=== PATIENT | female | born 1965 | race Two or more races ===

== ENCOUNTER 2016-07-05 11:00 | Day surgery (SDC) | payer OTHER ==
[2016-07-04 14:41] VITALS: BMI 45.9
[2016-07-05] VITALS (13 sets, daily range): BP systolic 112–151; BP diastolic 51–63; PULSE 53–79; RESP 11–18; Ht 165.1 cm; Wt 125.0 kg
[~2016-07-05] VITALS: Ht 165.1 cm; Wt 125.0 kg
[~2016-07-05 11:00] MED LIST: CIPROFLOXACIN 400 MG in D5W 200 ML IVPB SCH; PROPOFOL 200 MG INJ ONE
[2016-07-05] MEDS ORDERED: ATEN50TA PO (11:21)
[2016-07-05] MEDS ORDERED: AMLO-147 PO (11:22)
[2016-07-05] MEDS ORDERED: LOSA100T7 PO (11:22)
[2016-07-05] MEDS ORDERED: INSU100C SQ (11:23)
[2016-07-05] MEDS ORDERED: LANT3I SC (11:23)
[2016-07-05] MEDS ORDERED: FENO54TA7 PO (11:26)
[2016-07-05] MEDS ORDERED: FER325 PO (11:26)
[2016-07-05] MEDS ORDERED: LOVA20TA PO (11:26)
[2016-07-05] MEDS ORDERED: ASPI-664 PO (11:27)
--- NOTE | 2016-07-05 11:43 | HPN ---
Date/Time of Note Date/Time of Note DATE: 07/05/16 TIME: 11:41 Interval H&P Admission Note Pt. seen H&P reviewed: No system changes (procedure,benefits,risks, complications success and failure to remove all the stones,encrustation of the jj stent discussed with her and her . they are agreable to proceed.) ML GIPSON MD Jul 05, 2016 11:43
[2016-07-05] MEDS ORDERED: PROPOFOL 20 ML ONE (12:42)
[2016-07-05] MEDS ORDERED: MIDAZOLAM 1 MG/ML 2 ML INJ ONE (12:42)
[2016-07-05] MEDS ORDERED: FENTAnyl 50 MCG/ML VIAL ONE (12:42)
[2016-07-05] MEDS ORDERED: LIDOCAINE 2% (SDV) 5 ML INJ ONE (12:42)
[2016-07-05] MEDS ORDERED: SUCCINYLCHOLINE CHLORIDE 100 MG/5 ML SYG IV ONE (12:42)
[2016-07-05] MEDS ORDERED: DEXAMETHASONE 4 MG/ML 1 ML INJ ONE (13:11)
[2016-07-05] MEDS ORDERED: METOCLOPRAMIDE 10 MG INJ ONE (13:11)
[2016-07-05] MEDS ORDERED: FAMOTIDINE 20 MG INJ ONE (13:11)
[2016-07-05] MEDS ORDERED: ONDANSETRON 4 MG INJ ONE (13:11)
[2016-07-05] MEDS ORDERED: EPHEDrine SULFATE 50 MG/5 ML SYG ONE (13:12)
[2016-07-05] MEDS ORDERED: HYDROmorphONE 2 MG/ML SYG ONE (13:16)
[2016-07-05] MEDS ORDERED: HYDROCODONE/APAP (5/325) TAB PO PRN (15:00)
[2016-07-05] MEDS ORDERED: MEPERIDINE 25 MG INJ IV PRN (15:30)
[2016-07-05] MEDS ORDERED: LABETALOL HCL 20MG INJ IV PRN (15:30)
[2016-07-05] MEDS ORDERED: ONDANSETRON 4 MG INJ IV PRN (15:30)
[2016-07-05] MEDS ORDERED: OXYCODONE/ACETAMINOPHEN (5/325) TAB PO PRN ×2 (15:30)
[2016-07-05] MEDS ORDERED: PROCHLORPERAZINE 10 MG INJ IV PRN (15:30)
[2016-07-05] MEDS ORDERED: HYDROmorphONE (0.2 MG/ML) 10ML SYG IV PRN ×3 (15:30)
[2016-07-05] MEDS ORDERED: hydrALAzine 20 MG INJ IV PRN (15:30)
[2016-07-05] MEDS ORDERED: FENTAnyl 50 MCG/ML VIAL IV PRN ×3 (15:30)
[2016-07-05] MEDS ORDERED: DIPHENHYDRAMINE 50 MG INJ IV PRN (15:30)
--- NOTE | 2016-07-05 17:07 | RADRPT ---
PROCEDURE: Intraoperative imaging of the abdomen and pelvis with fluoroscopy. CLINICAL INDICATION: Abdominal pain. Intraoperative. TECHNIQUE: 11 images of the abdomen and pelvis were obtained in the operating room with an image i ntensifier. No radiologist was in attendance. 107.3 seconds of fluoroscopy time was used. COMPARISON: No prior study is available for comparison. FINDINGS: Images demonstrate instrumentation of the right ureter and subsequent placement of a double pigtail right ureteral stent in satisfactory position. IMPRESSION: 1. Satisfactory intraoperative imaging of the abdomen and pelvis. RPTAT: QQ .Rachid Martinez MD, MD Date Time Electronically viewed and signed by .Rachid Martinez MD, MD on 07/05/2016 17:07 .R/
--- NOTE | 2016-07-06 08:12 | OPR ---
DATE OF OPERATION: 07/05/2016 PREOPERATIVE DIAGNOSIS: Right renal stones, at least 3 of them. The patient is status post cystoscopy and insertion of right ureteral JJ stent because the stones were obstructing. POSTOPERATIVE DIAGNOSIS: Right renal stones, at least 3 of them. The patient is status post cystoscopy and insertion of right ureteral JJ stent because the stones were obstructing. OPERATION PERFORMED: 1. Cystoscopy. 2. Right ureteropyeloscopy 3. Laser lithotripsy with removal of stone and stone fragments. 4. Insertion of a new JJ stent with the string going out of her urethra and taped to her groin. TECHNIQUE: The patient was brought to the operating room. Prior to the surgery , I had discussed the procedure, the benefits and risks, and the possible complications with her and her , and they are agreeable to proceed. Once the patient was in the operating room, she was given general anesthesia, then positioned in the lithotomy position. A time-out was done. The patient was identified by her name, date, and the procedure. Once she was positioned in the lithotomy position, the genital area was prepped and draped in the usual sterile manner. A #21 Occitan cystoscope sheath was then introduced into the bladder. Urine was collected for culture and sensitivity. Then, under fluoroscopy and direct visualization of the JJ stent in the bladder , the distal end of the JJ stent was grasped and under fluoroscopy, it was pulled out. Care was taken to make sure that the proximal curl does uncurl so there was no calcification or encrustation of the JJ stent even there was some mild encrustation. Once the old JJ stent was removed, the right ureteral orifice was again cannulated with a 5-Occitan open-ended ureteral catheter and a ZIP-wire was advanced all the way up to the kidney. Then, the 5-Occitan open- ended was reintroduced into the bladder through the second working channel, and at this time, a 0.035 Sensor wire was used and advanced all the way up to the kidney. Once the 2 wires were in the kidney, the scope was removed and one of the wires, the Sensor wire, was used as a safety wire and the other wire was used to advance on it an access sheath. Initially, we tried a 13 to 15 outside diameter by 28 cm long access sheath; however, this did go in the distal ureter, but would not advance because of the size of the diameter of the access sheath. Therefore, I requested and obtained a 11 to 13 access sheath outside diameter and that did go all the way up to the proximal ureter. Then I used the digital ureteroscope and advanced it through the access sheath into the kidney. One stone initially was seen in the renal pelvis and another stone proximal to it. Then, I removed the ZIP-wire, and used the holmium laser fiber , 200 micron laser fiber and broke these 2 stones that were visible into numerous smaller pieces. Then, I used to nitinol Zero-Tip basket and basketed the stone fragments from the kidney. Of note there were some pieces that were a little bit bigger than to come down through the access sheath. Therefore, I did put the laser fiber again and I broke these stones into smaller pieces. At the end, all these stone fragments were removed. The only thing left were minor small sand-like pieces. Then, I did look at the lower pole of the kidney and found another stone that she had, and therefore we went ahead and treated the stone as well with the holmium laser, broke it into multiple pieces and removed all these pieces. Once the stones were removed from the kidney,I removed the old ureteroscope then, I reintroduced the regular cystoscope . A 6- Occitan x 24 cm long JJ stent was inserted into the right ureter and the distal end of it attached to a string that was taped to the patient's groin, so later on we could remove it without having to do a cystoscopy on her. At the end of the procedure, the patient was awake and transferred to recovery room. She will follow up as an outpatient to remove the JJ stent. Dictated By: ML CABRERA/SIDDHARTHA Conf#: [id number] DID#: [id number] TRINIDAD
== END 2016-07-09 09:56 | disposition home or self-care (01) ==
LOC: SDS 11:00
PROVIDERS: ATTEND Urology
DX: N20.1 Calculus of ureter (principal); I12.9 Hypertensive chronic kidney disease with stage 1 through stage 4 chronic kidney disease, or unspecified chronic kidney disease; N18.9 Chronic kidney disease, unspecified; E11.9 Type 2 diabetes mellitus without complications; E66.01 Morbid (severe) obesity due to excess calories; Z68.42 Body mass index [BMI] 45.0-49.9, adult; E78.5 Hyperlipidemia, unspecified
CPT/HCPCS: 52356; 74430; 82962; 84703; 87086; 88300; C2617; J0330; J0744; J1170; J2250; J2405; J2765; J3010; Z7512; Z7610; J1100